=== PATIENT | female | born 1970 | race Caucasian/White ===

== ENCOUNTER → 2023-08-20 14:35 | Outpatient (REF) | payer OTHER, SELFPAY | LOC: HWRAD 14:35 | PROVIDERS: ATTENDING PHYSICIAN Family Medicine | DX: R94.2 Abnormal results of pulmonary function studies (principal); R06.09 Other forms of dyspnea | CPT/HCPCS: 71250 ==

== ENCOUNTER → 2024-12-13 14:57 | Outpatient (REF) | payer OTHER, SELFPAY | LOC: HWRAD 14:57 | PROVIDERS: ATTENDING PHYSICIAN Registered Nurse | DX: R10.A1 Flank pain, right side (principal) | CPT/HCPCS: 74176 ==